=== PATIENT | female | born 1980 | race Caucasian/White ===

== ENCOUNTER → 2023-12-27 | Outpatient (CLI) | payer BC ==
[2023-12-27 14:58] LABS: HEMATOCRIT 35.9 % (37.0-47.0); HEMOGLOBIN 11.2 g/dL (12.5-16.0); MEAN CELL VOLUME 100 fl (78-100); MEAN CORPUSCULAR HEMOGLOBIN 31 pg (27-31); MEAN CORPUSCULAR HGB CONC 31 g/dL (33-37); MEAN PLATELET VOLUME 9.1 fl (7.4-10.4); PLATELET COUNT 208 K/mm3 (130-400); RED BLOOD COUNT 3.58 M/mm3 (4.10-5.30); RED CELL DISTRIBUTION WIDTH 20.4 % (11.5-14.5); WHITE BLOOD COUNT 8.5 K/mm3 (4.8-10.8)
[2023-12-27 15:04] LABS: ALBUMIN 3.8 g/dL (3.5-5.0)
[2023-12-27 15:06] LABS: CALCIUM 9.4 mg/dL (8.3-10.5)
[2023-12-27 15:09] LABS: TOTAL BILIRUBIN 1.1 mg/dL (0.2-1.2)
[2023-12-27 15:12] LABS: LYMPHOCYTE 6 % (20-51); MONOCYTE 2 % (3-10); NEUTROPHILS 92 % (42-75)
[2023-12-27 15:14] LABS: MICROCYTOSIS 1+
== END ==
LOC: LAB 14:38
DX: D59.9 Acquired hemolytic anemia, unspecified (principal); R73.01 Impaired fasting glucose

== ENCOUNTER → 2024-01-19 | Outpatient (CLI) | payer BC ==
[2024-01-19 15:39] LABS: HEMATOCRIT 36.7 % (37.0-47.0); HEMOGLOBIN 12.4 g/dL (12.5-16.0); MEAN CELL VOLUME 96 fl (78-100); MEAN CORPUSCULAR HEMOGLOBIN 32 pg (27-31); MEAN CORPUSCULAR HGB CONC 34 g/dL (33-37); MEAN PLATELET VOLUME 8.4 fl (7.4-10.4); PLATELET COUNT 170 K/mm3 (130-400); RED BLOOD COUNT 3.83 M/mm3 (4.10-5.30); RED CELL DISTRIBUTION WIDTH 15.6 % (11.5-14.5); WHITE BLOOD COUNT 5.3 K/mm3 (4.8-10.8)
[2024-01-19 16:20] LABS: LYMPHOCYTE 10 % (20-51); MONOCYTE 3 % (3-10); NEUTROPHILS 86 % (42-75)
[2024-01-19 16:22] LABS: HYPOCHROMIA 1+
== END ==
LOC: LAB 15:24
DX: D59.9 Acquired hemolytic anemia, unspecified (principal)

== ENCOUNTER → 2024-03-27 | Outpatient (CLI) | payer OTHER ==
[2024-03-27 09:42] LABS: HEMATOCRIT 36.6 % (37.0-47.0); HEMOGLOBIN 12.1 g/dL (12.5-16.0); LYMPH# 0.61 K/mm3 (1.50-4.00); MEAN CELL VOLUME 99 fl (78-100); MEAN CORPUSCULAR HEMOGLOBIN 33 pg (27-31); MEAN CORPUSCULAR HGB CONC 33 g/dL (33-37); MEAN PLATELET VOLUME 9.8 fl (7.4-10.4); MONO # 0.25 K/mm3 (0.20-0.80); NEU # 4.42 K/mm3 (1.40-6.50); PLATELET COUNT 155 K/mm3 (130-400); RED BLOOD COUNT 3.71 M/mm3 (4.10-5.30); RED CELL DISTRIBUTION WIDTH 16.1 % (11.5-14.5); WHITE BLOOD COUNT 5.3 K/mm3 (4.8-10.8)
[2024-03-27 09:53] LABS: ALBUMIN 4.2 g/dL (3.5-5.0)
[2024-03-27 09:54] LABS: CALCIUM 9.3 mg/dL (8.3-10.5)
[2024-03-27 09:56] LABS: TOTAL PROTEIN 6.6 g/dL (6.4-8.3)
== END ==
LOC: LAB 09:25
PROVIDERS: Internal Medicine Hematology & Oncology
DX: D59.10 Autoimmune hemolytic anemia, unspecified (principal); D61.818 Other pancytopenia

== ENCOUNTER → 2024-08-30 | Outpatient (CLI) | payer OTHER ==
[2024-08-30 17:17] LABS: BASO # 0.02 K/mm3 (0.02-0.10); EOS % 3.3 % (1.0-5.0); HEMATOCRIT 33.9 % (37.0-47.0); LYMPH# 1.03 K/mm3 (1.50-4.00); MEAN CELL VOLUME 87 fl (78-100); MEAN CORPUSCULAR HEMOGLOBIN 28 pg (27-31); MEAN CORPUSCULAR HGB CONC 32 g/dL (33-37); MONO # 0.46 K/mm3 (0.20-0.80); NEU # 4.35 K/mm3 (1.40-6.50); PLATELET COUNT 223 K/mm3 (130-400); RED BLOOD COUNT 3.89 M/mm3 (4.10-5.30); RED CELL DISTRIBUTION WIDTH 14.9 % (11.5-14.5); WHITE BLOOD COUNT 6.1 K/mm3 (4.8-10.8)
[2024-08-30 17:21] LABS: ALBUMIN 4.3 g/dL (3.5-5.0)
[2024-08-30 17:23] LABS: TOTAL PROTEIN 7.3 g/dL (6.4-8.3)
== END ==
LOC: LAB 16:50
PROVIDERS: Internal Medicine Hematology & Oncology
DX: D59.10 Autoimmune hemolytic anemia, unspecified (principal); D61.818 Other pancytopenia